=== PATIENT | female | born 1980 | race Caucasian/White ===

== ENCOUNTER 2016-07-19 09:19 | Emergency (ER) | payer MEDICAID ==
--- NOTE | 2016-08-04 15:23 | ER ---
ADMIT: 07/19/2016 RM/LOC: ER [facility] MR#: [id number] [address] [facility] [address] [place], [place] [address] JUANI HUDSON [address] [place] [address] Emergency Room Report SEX: F AGE: 36 : 1980 DATE: 07/19/2016 HISTORY OF PRESENT ILLNESS: A 36-year-old female, 17 weeks gestation, vomiting and diarrhea for 3 days. She says, she has children at home sick with the flu, and she is having some cramps sometimes. Last bowel movement was today. REVIEW OF SYSTEMS: Totally negative except for what is mentioned. PAST MEDICAL HISTORY: 1. Facial reconstruction. 2. Depression. PAST SURGICAL HISTORY: 1. . 2. D and C. MEDICATIONS: 1. Multivitamins. 2. Cymbalta. PHYSICAL EXAMINATION: GENERAL: Within normal limits. She is mildly anxious. HEENT: Oral mucosa is dry. GASTROINTESTINAL: She has epigastric discomfort with some nausea, vomiting, and diarrhea. GENITOURINARY: She says she has had frequency on urination. Past medical history is essentially negative. On examination, normal findings. LABORATORY DATA: Flu negative. CBC normal with a hemoglobin of 11.7, hematocrit 33.1. Potassium is 3.4. Lipase is within normal limits. UA shows wbc's 7, rbc's 19, protein 1+, hazy urine, leukocytes trace. CLINICAL IMPRESSION: Gastroenteritis. The patient is discharged with a prescription of Zofran. She says she does well with Reglan and advised that the Zofran was for no correction use, and if she needed something else, she needed to contact Loida Rivas for prescription. The patient verbalized understanding and was discharged home. VAISHALI Rosa / Deondre Singh MD / francisco j JOB #: [id number] CC: Deondre Singh MD, Attending Physician UNKNOWN, Family Physician
[2016-12-27] MEDS ORDERED: PRENATAL VITAM1 EAC6 PO (14:02)
[2016-12-27] MEDS ORDERED: CYMBALTA60 MG PO (14:03)
[2016-12-27] MEDS ORDERED: MOTRIN-DPS800 MG PO (14:04)
[2016-12-27] MEDS ORDERED: IRON325 M1 PO (14:04)
[2016-12-27] MEDS ORDERED: PERCOCET 10 DPS1 TAB PO (14:04)
[2016-12-27] MEDS ORDERED: COLACE-DPS100 MG PO (14:04)
== END 2016-07-19 11:30 | disposition home or self-care (01) ==
LOC: ER 09:19
DX: O99.612 Diseases of the digestive system complicating pregnancy, second trimester (principal); K52.9 Noninfective gastroenteritis and colitis, unspecified; O99.342 Other mental disorders complicating pregnancy, second trimester; F32.9 Major depressive disorder, single episode, unspecified; Z79.899 Other long term (current) drug therapy; Z3A.17 17 weeks gestation of pregnancy; Z88.1 Allergy status to other antibiotic agents; Z91.013 Allergy to seafood

== ENCOUNTER 2016-07-27 18:52 | Emergency (ER) | payer OTHER, MEDICAID ==
--- NOTE | 2016-07-29 13:58 | ER ---
ADMIT: 07/27/2016 RM/LOC: ER [facility] MR#: [id number] [address] [facility] [address] [place], [place] [address] JUANI VASQUEZ [address] [place] [address] Emergency Room Report SEX: F AGE: 36 : 1980 DATE: 07/27/2016 ADDENDUM: CHIEF COMPLAINT: Laceration. 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 She accidentally cut her hand in between the 3rd and 4th digit of her right hand. Only one stitch was placed in that area because she really wanted it completely closed. She is going to receive tetanus before leaving. CLINICAL IMPRESSION: Laceration to the right hand. VAISHALI Mancilla / Kleber Patel MD / francisco j JOB #: [id number] CC: Kleber Patel MD, Attending Physician Loida Rivas MD, Family Physician
[2016-12-27] MEDS ORDERED: PRENATAL VITAM1 EAC6 PO (14:02)
[2016-12-27] MEDS ORDERED: CYMBALTA60 MG PO (14:03)
[2016-12-27] MEDS ORDERED: MOTRIN-DPS800 MG PO (14:04)
[2016-12-27] MEDS ORDERED: COLACE-DPS100 MG PO (14:04)
[2016-12-27] MEDS ORDERED: IRON325 M1 PO (14:04)
[2016-12-27] MEDS ORDERED: PERCOCET 10 DPS1 TAB PO (14:04)
== END 2016-07-27 20:41 | disposition home or self-care (01) ==
LOC: ER 18:52
PROC: 0HQFXZZ Repair Right Hand Skin, External Approach (ICD-10-PCS; principal; 2016-07-27)
DX: S61.411A Laceration without foreign body of right hand, initial encounter (principal); F32.9 Major depressive disorder, single episode, unspecified; E16.2 Hypoglycemia, unspecified; Z88.1 Allergy status to other antibiotic agents; W45.8XXA Other foreign body or object entering through skin, initial encounter; Y99.0 Civilian activity done for income or pay

== ENCOUNTER 2016-12-23 05:25 | Inpatient (IN) | payer MEDICAID ==
[~2016-12-23] VITALS: Ht 172.7 cm; Wt 112.9 kg
--- NOTE | ~2016-12-23 | OR ---
ADMIT: 12/23/2016 RM/LOC: 223 [facility] MR#: [id number] [address] [address] JOSEGRACIELA SQUIRESJUANI ARANA [address] [place] [address] Operative/Delivery Room Report SEX: F AGE: 36 : 1980 SURGERY DATE: 12/23/2016 SURGEON: Loida Rivas MD NAME OF PROCEDURE: Repeat section. ASSISTANTS: Rui Macedo MD and Deondre Gold MD Resident. PREOPERATIVE DIAGNOSES: 1. Intrauterine at 39 and 5/7 weeks' gestation. 2. Previous section x3. 3. Bipolar disorder. 4. Rh negative status. POSTOPERATIVE DIAGNOSES: 1. Intrauterine at 39 and 5/7 weeks' gestation. 2. Previous section x3. 3. Bipolar disorder. 4. Rh negative status. FINDINGS: 1. Live born male , scores 7 at 1 minute and 9 at 5 minutes, weight 7 pounds 14 ounces. 2. Normal appearing uterus, tubes, and ovaries bilaterally. ESTIMATED BLOOD LOSS: 500 mL. ANESTHESIA: Spinal. COMPLICATIONS: None. INDICATIONS FOR PROCEDURE: The patient is a 36-year-old 7, para 2-2-2- 3, who presented to Labor and Delivery at 39 and 5/7 weeks' gestation for scheduled repeat section at term. The patient's then complicated by history of previous section x3 as well as bipolar disorder and Rh negative status. Risks, benefits, and alternatives of surgery have been discussed with the patient, and she wished to proceed. DESCRIPTION OF PROCEDURE: The patient was taken to the operating room where spinal anesthesia was obtained without difficulty. The patient was placed in dorsal supine position in leftward tilt, and prepped and draped in usual sterile fashion. A Pfannenstiel skin incision was made with scalpel and was carried through to the underlying layer of fascia. The fascia was nicked in midline and this incision was extended bilaterally using Langley scissors. The superior aspect of the fascial incision was grasped with Edelmira clamps, elevated, and the underlying rectus muscles were dissected off sharply with Langley scissors. Extensive scarring of the muscles to the fascia was noted. In a similar fashion, the inferior aspect of the fascial incision was grasped with Edelmira clamps, elevated, and underlying rectus muscles were dissected off ADMIT: 12/23/2016 RM/LOC: 223 [facility] MR#: [id number] [address] [address] JUANI VASQUEZ [address] [place] [address] Operative/Delivery Room Report SEX: F AGE: 36 : 1980 sharply. The perineum was entered bluntly. The perineal incision was extended using combination of sharp and blunt technique. The bladder blade was then placed. The vesicouterine peritoneum was identified and entered sharply with Metzenbaum scissors and this incision was extended bilaterally and a bladder flap was created digitally. The bladder blade was then replaced. The lower uterine segment was incised with scalpel and thin meconium fluid was noted at amniotomy. The uterine incision was extended bluntly. The 's vertex was grasped and delivered, was found difficulty through the uterine incision. The muscles were divided using bandage scissors for more room for the vertex. The remainder of the then delivered without difficulty. The was dried and after delayed cord clamping, the cord was clamped and cut. The was handed off to the warmer where nursing personnel were in attendance. The placenta then delivered intact. 20 units of Pitocin were placed in IV bag to firm the uterus. The uterus was exteriorized and cleared of all clots and debris. The uterine incision was closed in a running locked fashion using 0 Vicryl. One additional [id number] stitch was used for hemostasis of the uterine incision. The uterus was then replaced into the abdominal cavity. The gutters were checked and cleared of all clots and debris. The uterine incision was again examined and was noted to be hemostatic. The muscles and fascia were examined and made hemostatic with electrocautery. The fascial incision was closed in a running fashion using 0 Vicryl. The subcutaneous layer was made hemostatic with electrocautery and this layer was brought together using interrupted 2-0 plain gut. The skin incision was closed with subcuticular stapler. The patient tolerated the procedure well. All sponge and needle counts were correct. The patient and her recovered in the room in stable condition. Loida Rivas MD/ francisco j JOB #: [id number] CC: Loida Rivas, Attending Physician Loida Rivas, Family Physician
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
--- NOTE | 2016-12-27 12:16 | OR ---
ADMIT: 12/23/2016 RM/LOC: 223 [facility] MR#: [id number] [address] [address] JUANI VASQUEZ [address] [place] [address] Operative/Delivery Room Report SEX: F AGE: 36 : 1980 SURGERY DATE: 12/23/2016 SURGEON: Rui Macedo MD PRINCIPAL DIAGNOSES: 1. day #0 status post repeat low transverse section. 2. Postoperative wound separation. PROCEDURES PERFORMED: 1. Ligation of subcutaneous vein. 2. Closure of postoperative wound separation. INDICATION: The patient is a 36-year-old white female, 7, para 3-0-2- 3, day #0 from an elective repeat low transverse section. PROCEDURE IN DETAIL: The patient was doing fairly well and was having a little bit of greater than normal bleeding. A pressure dress was applied, and sandbag was applied. The patient, however, bled through this pressure dressing. The pressure dressing was removed. Incision was examined, and it was noted that approximately 8 cm of right aspect of the patient's abdominal incision had , and there was clot and active oozing. The patient was noted to be comfortable and was comfortable with closure of this in the room. It was prepped in sterile fashion. Several interrupted sutures of 0 Vicryl were then used to close the deep subcutaneous tissue and control the oozing vein. This was done in 2 layers, and then several interrupted subcuticular stitches of 3-0 Vicryl were used to reapproximate the incision. The patient tolerated the procedure well. Rui Macedo MD/ francisco j JOB #: [id number] CC: Loida Rivas, Attending Physician Loida Rivas, Family Physician
[2016-12-27] MEDS ORDERED: PRENATAL VITAM1 EAC6 PO (14:02)
[2016-12-27] MEDS ORDERED: CYMBALTA60 MG PO (14:03)
[2016-12-27] MEDS ORDERED: IRON325 M1 PO (14:04)
[2016-12-27] MEDS ORDERED: COLACE-DPS100 MG PO (14:04)
[2016-12-27] MEDS ORDERED: PERCOCET 10 DPS1 TAB PO (14:04)
[2016-12-27] MEDS ORDERED: MOTRIN-DPS800 MG PO (14:04)
== END 2016-12-26 10:55 | disposition home or self-care (01) | DRG 765 ==
LOC: BC 05:25 → 2LDRP 05:25 → BC 12-25 08:00 → 2LDRP 12-26 10:55
PROVIDERS: ADMIT Obstetrics & Gynecology
PROC: 10D00Z1 Extraction of Products of Conception, Low, Open Approach (ICD-10-PCS; principal; 2016-12-23)
PROC: 0W3F0ZZ Control Bleeding in Abdominal Wall, Open Approach (ICD-10-PCS; 2016-12-23)
DX: O34.211 Maternal care for low transverse scar from previous cesarean delivery (principal); L76.22 Postprocedural hemorrhage of skin and subcutaneous tissue following other procedure; D62 Acute posthemorrhagic anemia; O90.81 Anemia of the puerperium; O90.0 Disruption of cesarean delivery wound; O77.0 Labor and delivery complicated by meconium in amniotic fluid; O99.344 Other mental disorders complicating childbirth; F31.9 Bipolar disorder, unspecified; Z88.0 Allergy status to penicillin; Z3A.39 39 weeks gestation of pregnancy; Z37.0 Single live birth